=== PATIENT | male | born 2000 | race African-American/Black ===

== ENCOUNTER → 2024-02-27 | Outpatient (CLI) | payer OTHER ==
[2024-02-28 03:07] LABS: MUMPS VIRUS IGG ANTIBODY <9.0 AU/mL (Immune >10.9); RUBELLA AB IGG-REFLAB <0.90 index (Immune >0.99); RUBEOLA (MEASLES) IGG 63.3 AU/mL (Immune >16.4)
== END | disposition home or self-care (01) ==
LOC: LABMN 12:04
PROVIDERS: ATTEND Internal Medicine
DX: Z02.1 Encounter for pre-employment examination (principal)
CPT/HCPCS: 86706; 86735; 86762; 86765; 86787

== ENCOUNTER 2024-08-04 10:08 | Emergency (ER) | payer OTHER ==
[~2024-08-04] VITALS: Ht 175.3 cm; Wt 88.6 kg
[2024-08-04 10:21] VITALS: BP 126/74; PULSE 56; RESP 18; TEMP 98.6; O2SAT 99
[2024-08-04] MEDS ORDERED: LIDO700A15 TP (13:48)
== END 2024-08-04 14:05 | disposition home or self-care (01) ==
LOC: EMS 10:08
DX: S82.141A Displaced bicondylar fracture of right tibia, initial encounter for closed fracture (principal); S83.206A Unspecified tear of unspecified meniscus, current injury, right knee, initial encounter; S83.511A Sprain of anterior cruciate ligament of right knee, initial encounter; X58.XXXA Exposure to other specified factors, initial encounter; Y93.67 Activity, basketball; Y92.89 Other specified places as the place of occurrence of the external cause; Y99.8 Other external cause status
CPT/HCPCS: 29505; 73718; 99284; Z7502